=== PATIENT | female | born 1990 | race Caucasian/White ===

== ENCOUNTER → 2017-09-19 | Outpatient (CLI) | payer BC ==
[~2017-09-19] MED LIST: ACET-749 PO; PRENTAB26 PO
[2017-09-19 10:24] LABS: THYROID STIMULATING HORMONE 0.901 uIu/ml (0.300-4.500)
[2017-09-21 13:52] LABS: CRYPTOSPORIDIUM AG TC 37213 NOT DETECTED (NOT DETECTED); O&P GIARDIA AG NOT DETECTED (NOT DETECTED); O&P SOURCE OTHER-STOOL
== END | disposition home or self-care (01) ==
LOC: C.LAB1850 07:08
PROVIDERS: ATTEND Nurse Practitioner Family
DX: R19.5 Other fecal abnormalities (principal); R10.9 Unspecified abdominal pain

== ENCOUNTER → 2018-02-15 | Outpatient (CLI) | payer OTHER | END | disposition home or self-care (01) | LOC: C.PAPS 16:08 | PROVIDERS: ATTEND Obstetrics & Gynecology | DX: Z01.419 Encounter for gynecological examination (general) (routine) without abnormal findings (principal) ==

== ENCOUNTER 2019-05-09 01:49 | Inpatient (IN) ==
[2019-05-09] MEDS ORDERED: ePHEDrine sulfate 50 MG/ML AMP IV PRN (02:32)
[2019-05-09] MEDS ORDERED: ONDANSETRON INJ 2 MG/ML 2 ML VIAL IV PRN (02:32)
[2019-05-09] MEDS ORDERED: OXYTOCIN 30 UNITS/500 ML BAG IV PRN ×3 (02:32→08:19)
[2019-05-09] MEDS ORDERED: NALOXONE HCL 1 MG in SODIUM CHLORIDE 0.9% 1000ML 1,000 ML IV PRN (02:32)
[2019-05-09] MEDS ORDERED: NALOXONE HCL 0.4 MG/1 ML VIAL/CARP IV PRN (02:32)
[2019-05-09] MEDS ORDERED: fentaNYL 2MCG/ML ROPIV 1.25MG/ML 100 ML BAG EPI PRN (02:32)
[2019-05-09] MEDS ORDERED: NALBUPHINE HCL INJ 10 MG/ML AMP IV PRN (02:32)
[2019-05-09] MEDS ORDERED: DiphenhydrAMINE HCL 50 MG/ML VIAL IV PRN (02:32)
[2019-05-09] MEDS: LACTATED RINGER'S 1,000 ML IV PRN ×2 (02:45→05:39)
[2019-05-09 02:51] LABS: Hematocrit (blood only) 38.1 % (37-47); Hemoglobin 13.7 g/dL (12.0-16.0); Mean Platelet Volume 11.5 fL (7.4-10.4); Platelet Count 128 K/uL (130-400); RDW Coefficient of Variation 12.3 % (11.5-14.5); RDW Standard Deviation 39.6 fL (36.4-46.3); Red Blood Count 4.28 M/uL (4.2-5.4); White Blood Count 6.65 K/uL (4.8-10.8)
--- NOTE | 2019-05-09 02:54 | History & Physical Report ---
Date of Service May 09, 2019 Assessment & Plan (1) 40 weeks gestation of : (2) Active labor at term: admit, iv, labs. desires epidural. fetus categ 1. History of Present Illness Chief Complaint: regular ctx Primary Care Provider: NO PCP 28yo at 40+wks ega presents with above cc. No rom. Bloody show. Regular ctx, stronger and more painful. Cx per nurse 4cm. pnc c/b 1. 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 Beliefs That Will Affect Care: None marital status: Current Living Situation: Family Other Information That Helps Us Care for You: No Feels Safe at Home: Yes Safety Concerns: Feels Safe At This Time Smoking Status: Never smoker Do You Dip or Chew Tobacco: No Second Hand Exposure: No Tobacco Cessation Education Requested by Patient: No Hx Alcohol Use: No Hx Substance Use: No Physical Exam Constitutional: WD/WN, vitals as above Respiratory: normal respiratory effort, lungs clear to auscultation Cardiovascular: Rate/Rhythm: regular rate and regular rhythm Gastrointestinal (Abdomen): gravid nt, efw 7# Musculoskeletal: no edema Neurologic: grossly normal Genitourinary: Manual OB Exam: + cervical dilation 4 cm, + cervical effacement 80% and + amniotic fluid (intact) OB Exam Monitor Tracing: + external FHT monitor used (130 mod variability) and + external uterine monitor used (q2) Results & Data Vital Signs (Past 12 Hours) Vital Signs Temp Pulse Resp BP Pulse Ox 05/09/19 02:49 71 100 05/09/19 02:24 64 117/72 05/09/19 02:00 36.9 C 20
[2019-05-09] MEDS ORDERED: ePHEDrine sulfate 50 MG/ML AMP ONE (02:57)
[2019-05-09] MEDS ORDERED: fentaNYL citrate 100 MCG/2 ML VIAL ONE (02:57)
[2019-05-09] MEDS ORDERED: fentaNYL 2MCG/ML ROPIV 1.25MG/ML 100 ML BAG EPI ONE (02:57)
[2019-05-09] MEDS ORDERED: BUPIVACAINE 0.25% 30 ML VIAL ONE (02:57)
--- NOTE | 2019-05-09 03:18 | Anesthesiology Consultation ---
Date of Service May 09, 2019 Assessment & Plan Chart Review Chart Review: Patient NOT seen in Pre Admission Testing and Acceptable Risk for Labor Epidural Consults Requested none ASA ASA2 Proposed Anesthesia Anesthesia Type: Labor Epidural and CSE Risk / Benefits Reviewed With: PT / POA / Parent / Guardian, Accepts Plan and Informed Consent Obtained History Height/Weight Height: 5 ft 6 in Weight: 76.328 kg Allergies Allergy/AdvReac Type Severity Reaction Status Date / Time No Known Allergies Allergy Verified 04/10/19 18:18 Medications Home Medications Medication Instructions Recorded Confirmed Last Taken vit no.[id number] 1 tab PO DAILY 05/09/19 05/09/19 05/08/19 20:00 [ Vitamin] Active Medications Generic Name Dose Route Start Last Admin Trade Name Freq PRN Reason Stop Dose Admin Lactated Ringer's 1,000 mls @ 125 mls/hr 05/09/19 02:32 05/09/19 03:15 Lr IV 05/11/19 02:31 125 mls/hr .Q8H PRN Infusion L&D Protocol Protocol NPO Date Last Intake of Fluids: 05/09/19 Time Last Intake of Fluids: 01:00 Date Last Intake of Solids: 05/08/19 Time Last Intake of Solids: 19:00 Exercise / Class Metabolic Activity II 4-5 Yardwork/Stairs/Walk up hill Past Anesthesia History No Hx of Anesthesia Complications and No Family Hx of Anesthesia Complications History of PONV No Hx of PONV and Hx of Motion Sickness Social History Smoking Status: Never smoker Do You Dip or Chew Tobacco: No Hx Alcohol Use: No Hx Substance Use: No substance use type: does not use Review of Systems no chest pain or sob Physical Exam Vital Signs Last Vital Signs Temp 36.9 C 05/09/19 02:00 Pulse 68 05/09/19 03:16 Resp 20 05/09/19 02:00 BP 122/88 05/09/19 03:06 Pulse Ox 100 05/09/19 03:16 ENMT Mouth: no TMJ abnormality Thyromental Distance: > or= 3.5 Finger Breadths Mallampati Class: II Neck normal visual inspection Respiratory normal respiratory effort Auscultation: lungs clear to auscultation bilaterally Cardiovascular Rate/Rhythm: regular rate and regular rhythm Musculoskeletal Spine: normal cervical ROM Neurologic moves all extremities Psychiatric Orientation: alert and oriented x 3 Testing Laboratory Results 05/09/19 02:41
--- NOTE | 2019-05-09 06:43 | Obstetrical Progress Note ---
Date of Service May 09, 2019 Assessment & Plan (1) 40 weeks gestation of : (2) Active labor at term: will c/w pit, see how arom helps ctx pattern. Subjective feeling some ctx pain, using epidural button Physical Exam Constitutional: WD/WN, vitals as above Genitourinary: Manual OB Exam: + cervical dilation 5 cm, + cervical effacement 80%, + station -2 and + amniotic fluid (AROM) clear OB Exam Monitor Tracing: + external FHT monitor used (130 mod variability), + external uterine monitor used (q2) and + category I Results & Data Vital Signs (Past 12 Hours) Vital Signs Temp Pulse Resp BP Pulse Ox 05/09/19 06:36 63 111/69 97 05/09/19 06:31 55 L 97 05/09/19 06:30 36.6 C 20 05/09/19 06:26 56 L 98 05/09/19 06:21 51 L 98 05/09/19 06:19 63 102/62 05/09/19 06:16 56 L 97 05/09/19 06:11 56 L 98 05/09/19 06:06 54 L 105/63 98 05/09/19 06:01 55 L 98 05/09/19 06:00 18 05/09/19 05:56 58 L 100 05/09/19 05:51 55 L 100 05/09/19 05:50 55 L 115/69 05/09/19 05:46 61 100 05/09/19 05:41 58 L 100 05/09/19 05:36 56 L 100 05/09/19 05:34 56 L 108/65 05/09/19 05:31 60 100 05/09/19 05:30 18 05/09/19 05:26 75 100 05/09/19 05:21 58 L 100 05/09/19 05:19 56 L 106/58 L 05/09/19 05:16 54 L 100 05/09/19 05:11 65 100 05/09/19 05:06 58 L 99 05/09/19 05:04 57 L 101/55 L 05/09/19 05:01 59 L 98 05/09/19 04:56 54 L 98 05/09/19 04:51 57 L 98 05/09/19 04:49 59 L 104/58 L 05/09/19 04:46 55 L 98 05/09/19 04:41 52 L 97 05/09/19 04:36 56 L 97 05/09/19 04:34 61 108/64 05/09/19 04:31 52 L 97 05/09/19 04:26 53 L 97 05/09/19 04:21 54 L 98 05/09/19 04:19 52 L 107/59 L 05/09/19 04:16 54 L 97 05/09/19 04:11 54 L 97 05/09/19 04:06 54 L 97 05/09/19 04:04 51 L 108/59 L 05/09/19 04:01 54 L 98 05/09/19 04:00 36.6 C 20 05/09/19 03:56 55 L 99 05/09/19 03:51 60 100 05/09/19 03:46 58 L 106/58 L 99 05/09/19 03:43 56 L 117/56 L 05/09/19 03:41 62 100 05/09/19 03:40 63 117/58 L 05/09/19 03:37 62 114/57 L 05/09/19 03:36 66 100 05/09/19 03:34 69 108/57 L 05/09/19 03:31 62 108/58 L 98 05/09/19 03:30 20 05/09/19 03:29 65 110/69 05/09/19 03:26 75 100 05/09/19 03:21 71 100 05/09/19 03:16 68 100 05/09/19 03:11 61 100 05/09/19 03:06 57 L 122/88 100 05/09/19 03:00 64 99 05/09/19 02:55 66 99 05/09/19 02:49 71 100 05/09/19 02:24 64 117/72 05/09/19 02:00 36.9 C 20
[2019-05-09] MEDS ORDERED: BENZOCAINE 20% AER SPR 82.5 GM CAN EXT PRN (08:19)
[2019-05-09] MEDS ORDERED: ACETAMINOPHEN 325 MG TAB PO PRN (08:19)
[2019-05-09] MEDS ORDERED: OXYCODONE/ACETAMINOPHEN 5mg/325mg TAB PO PRN (08:19)
[2019-05-09] MEDS ORDERED: HYDROCORTISONE ACETATE 25 MG SUPP PR PRN (08:19)
[2019-05-09] MEDS ORDERED: SUPERCREAM 0.870% 15 GM JAR EXT PRN (08:19)
--- NOTE | 2019-05-09 08:36 | Delivery Summary ---
DATE OF OPERATION: 05/09/2019 DELIVERY NOTE The patient dilated to complete and pushed to deliver a viable female , Apgars 9 and 9 via over small second-degree perineal laceration. Mouth and nose bulb suctioned at the perineum. Loose nuchal cord x1 reduced. The shoulders and body delivered with ease. The was vigorous and crying at . Cord clamped at 30 seconds of life and to maternal abdomen where the cord was then doubly clamped and cut. Placenta delivered spontaneously and intact, 3-vessel cord. Hemostasis achieved with dilute Pitocin as well as uterine massage and drainage of the bladder approximately 150 mL under sterile conditions. Cervix and sulci intact. Laceration repaired in the usual fashion with 3-0 Vicryl. EBL 300 mL. Mother and baby stable in recovery. I attest to the content of the Intraoperative Record and any orders documented therein. Any exception s are noted below.
[2019-05-09] MEDS ORDERED: LACTATED RINGER'S 1,000 ML IV SCH (11:30)
[2019-05-09] MEDS ORDERED: DIPHTHERIA/TETANUS/PERTUSSIS 0.5 ML SYR/VIAL IM ONE (11:30)
[2019-05-09] MEDS: IBUPROFEN 600 MG TAB PO PRN ×3 (13:55→22:18)
--- NOTE | 2019-05-09 16:43 | Anesthesia Procedure Note ---
Date of Service May 09, 2019 Anesthesia Post Epidural Note Vital Signs Vital Signs: Temp Pulse Resp BP Pulse Ox 37.1 C 56 L 16 104/65 99 05/09/19 15:10 05/09/19 15:10 05/09/19 15:10 05/09/19 15:10 05/09/19 15:10 Notes Mental Status: alert / awake / arousable Nausea / Vomiting: adequately controlled Pain: adequately controlled Airway Patency, RR, SpO2: stable & adequate BP & HR: stable & adequate Hydration State: stable & adequate Neuraxial Anesthesia: was administered and sensory block is resolving Anesthetic Complications: no major complications apparent and Pt Satisfied with anesthetic care Epidural: Removed without complications and With tip intact
[2019-05-10] MEDS: IBUPROFEN 600 MG TAB PO PRN ×3 (02:08→11:11)
--- NOTE | 2019-05-10 05:29 | Obstetrical Progress Note ---
Date of Service <Abiodun Taylor MD - Last Filed: 05/10/19 07:18> May 10, 2019 Assessment & Plan <Abiodun Taylor MD - Last Filed: 05/10/19 07:18> (1) Vaginal delivery: [28 y/o s/p vaginal delivery @ 40+2] -PPD# 1 - GBS negative, Blood Type O+ - Feels well today. Eating well, voiding well, ambulating well. - Pain well controlled. - Routine care - After discharge will have [address] Ford. Day #:: 1 Subjective <Abiodun Taylor MD - Last Filed: 05/10/19 07:18> Ambulation: ambulating normally Voiding: no voiding problems Passing Gas:: Yes Diet Tolerance:: regular diet Lochia:: Moderate (less than a heavy period) Feeding Type:: breast feeding Current Pain Level(1-10): 0 (5/10 w/o Motrin.) Physical Exam <Abiodun Taylor MD - Last Filed: 05/10/19 07:18> OB PE General: Alert, oriented. No acute distress. Cardiac: Regular rate and rhythm, no murmurs/rubs/gallops. Respiratory: Clear to auscultation anterior and posteriorly, no wheezes/rales/rhonchi. No increased work of breathing. Symmetrical chest rise. No respiratory distress. Abdomen: Soft, nontender, nondistended. Bowel sounds present. Uterus: Uterine fundus firm, palpable 1 cm below umbilicus. Lower Extremities: No lower extremity edema or swelling. No deep calf pain. Mandy's negative bilaterally. OB ROS Denies fever, chills, sweats Denies shortness of breath, difficulty breathing, chest pain, palpitations, chest pressure. Denies breast pain. Denies dysuria. Denies headache. Results & Data <Abiodun Taylor MD - Last Filed: 05/10/19 07:18> Vital Signs (Past 12 Hours) Vital Signs Temp Pulse Resp BP Pulse Ox 05/10/19 04:15 37.1 C 69 17 110/68 98 05/09/19 22:30 36.4 C L 61 16 117/73 99 05/09/19 19:50 37.2 C 66 16 124/76 99 <Leta B. Kieran, MD - Last Filed: 05/10/19 07:08> Co-Signing Physician Notes I have reviewed the resident's note and examined the patient myself, and agree with the note above.
== END 2019-05-10 15:15 | disposition home or self-care (01) | DRG 807 ==
LOC: OPB 01:49 → 4S1 01:51 → 4S2 11:10

== ENCOUNTER 2019-05-24 02:43 | Observation (INO) ==
[2019-05-24] MEDS ORDERED: SODIUM CHLORIDE 0.9% 1000ML 1,000 ML IV ONE (02:56)
--- NOTE | 2019-05-24 02:58 | Emergency Department Note ---
History of Present Illness General Chief complaint: Vaginal Bleeding Stated complaint: VAGINAL BLEEDING, 2WKS POST Time Seen by Provider: 05/24/19 02:51 Source: patient, RN notes reviewed and old records reviewed Mode of arrival: ambulatory Limitations: no limitations History of Present Illness Provider complaint: Vaginal bleeding Onset (ago): hour(s) 1 Location: genitals Severity: severe Maximum Pain Intensity: 1 Quality: + dull Relieved By: + none Exacerbated By: + none Associated symptoms: + denies other symptoms Treatments prior to arrival: other (Pads) This is a 29-year-old female who presents emergency department 2 weeks complaining of vaginal bleeding. The patient reports she began having vaginal bleeding approximately 1 hour ago. The patient describes the bleeding as heavy. She has [address] and has already soaked through her underwear as well as her pants. She denies any other pain, chest pain abdominal pain pelvic pain. Patient reports no other history of bleeding issues. She reports she has been breast-feeding the baby and the baby has been healthy. She also reports a normal labor. She has not had any problems since delivery. Home Medications Home Medications Medication Instructions Recorded Confirmed Type Vitamin 1 tab PO DAILY 05/09/19 05/24/19 History Allergies Allergy/AdvReac Type Severity Reaction Status Date / Time No Known Allergies Allergy Verified 05/24/19 03:18 Past Med/Surg History Medical History Simpson teeth extracted Social History Preferred Language: Divehi Communication Ability: Effective Manager Hris Required: No Beliefs That Will Affect Care: None marital status: Current Living Situation: Spouse and Family Feels Safe at Home: Yes Safety Concerns: Feels Safe At This Time Smoking Status: Never smoker Do You Dip or Chew Tobacco: No ; Second Hand Exposure: No ; Hx Alcohol Use: No Hx Substance Use: No Review of Systems A total of 10 systems reviewed and were otherwise negative Physical Exam Vital Signs Vital Signs - 24 hr 05/24/19 02:47 05/24/19 03:14 05/24/19 03:17 Temperature 36.7 C Temperature Source Oral Sepsis Recent Fever Within 48 Hours No Sepsis Action Taken by Nursing No Action Required Pulse Rate 111 H Pulse Rate [Right Finger] 92 H 91 H Pulse Rhythm [Right Finger] Regular Regular Pulse Strength [Right Finger] Normal Normal Respiratory Rate 18 18 16 Respiratory Effort / Characteristics Non-Labored Non-Labored Non-Labored Respiratory Depth Normal Normal Normal Respiratory Pattern Regular Regular Blood Pressure 117/78 Blood Pressure [Right Arm] 126/84 119/76 Blood Pressure Mean 91 Blood Pressure Mean [Right Arm] 98 90 Blood Pressure Position Sitting Blood Pressure Position [Right Arm] Lying Lying Pulse Oximetry 100 100 100 Oxygen Delivery Method Room Air Room Air Room Air 05/24/19 03:31 05/24/19 03:41 Temperature Temperature Source Sepsis Recent Fever Within 48 Hours Sepsis Action Taken by Nursing Pulse Rate 90 Pulse Rate [Right Finger] 87 Pulse Rhythm [Right Finger] Regular Pulse Strength [Right Finger] Normal Respiratory Rate 14 16 Respiratory Effort / Characteristics Non-Labored Respiratory Depth Normal Respiratory Pattern Regular Blood Pressure 116/70 Blood Pressure [Right Arm] 116/82 Blood Pressure Mean Blood Pressure Mean [Right Arm] 93 Blood Pressure Position Blood Pressure Position [Right Arm] Lying Pulse Oximetry 100 99 Oxygen Delivery Method Room Air Room Air GENERAL: Patient is a pale appearing female in moderate distress HEAD: Normocephalic atraumatic EYES: Ocular movements intact pupils equal and react to light OROPHARYNX mucous membranes are moist no exudates present no erythema or edema present NECK: Supple no nuchal rigidity CHEST: Good equal expansion LUNGS: Clear and equal to auscultation CARDIAC: Normal S1 and S2 ABDOMEN: Soft nontender no guarding : Large amount of clots and bleeding in vag vault BACK: No CVA tenderness EXTREMITIES: No pain upon palpation normal muscle strength in all groups no clubbing cyanosis or edema NEURO: Patient is following commands is answering questions appropriately. Alert and oriented x3 Cranial Nerves 2-12 grossly intact Course Administered Medications Lactated Ringer's (Lr) 1,000 mls @ 125 mls/hr IV .Q8H [facility] Stop: 06/23/19 04:29 Last Admin: 05/24/19 06:15 Dose: 125 mls/hr Documented by: [id number] Ondansetron HCl (Zofran) 4 mg IV ONCE PRN PRN Reason: PACU Use Only-Nausea/Vomiting Stop: 05/24/19 09:05 Last Admin: 05/24/19 06:44 Dose: 4 mg Documented by: [id number] Discontinued Medications Sodium Chloride (Nss 1000ml) 1,000 mls @ 999 mls/hr IV .Q1H1M ONE Stop: 05/24/19 03:56 Last Infusion: 05/24/19 06:03 Dose: 0 mls/hr Documented by: [id number] Admin: 05/24/19 03:05 Dose: 999 mls/hr Documented by: [id number] Piperacillin Sod/Tazobactam Sod (Zosyn) 3.375 gm in 115 mls @ 230 mls/hr IV NOW STA Stop: 05/24/19 04:16 Last Infusion: 05/24/19 06:03 Dose: 0 mls/hr Documented by: [id number] Admin: 05/24/19 03:58 Dose: 230 mls/hr Documented by: [id number] Misoprostol (Cytotec) Confirm Administered Dose 800 mcg .ROUTE .STK-MED ONE Stop: 05/24/19 04:08 Last Admin: 05/24/19 04:09 Dose: 800 mcg Documented by: [id number] Medical Decision Making Differential Diagnosis My differential includes but is not limited to retained part products of conception, vaginal laceration, hemorrhage, DIC, dysfunctional uterine bleeding Medical Records Attestation: I reviewed the patient's medical records. Home Medications Current Medication List: was personally reviewed by me Laboratory Data Attestation: I reviewed the patient's lab results. Result diagrams: 05/24/19 05:59 05/24/19 02:58 Lab Results 05/24/19 05/24/19 05/24/19 Range/Units 02:58 02:58 02:58 WBC 6.99 (4.8-10.8) K/uL RBC 4.71 (4.2-5.4) M/uL Hgb 15.4 (12.0-16.0) g/dL POC Hgb (12.0-16.0) g/dl Hct 42.9 (37-47) % POC Hct (37-47) % MCV 91.1 (80-100) fL MCH 32.7 (25-34) pg MCHC 35.9 (32-36) g/dL RDW Std Deviation 39.9 (36.4-46.3) fL RDW Coeff of Shaniqua 11.8 (11.5-14.5) % Plt Count 218 (130-400) K/uL MPV 10.4 (7.4-10.4) fL Immature Gran % (Auto) 0.1 % Neut % (Auto) 47.1 % Lymph % (Auto) 43.8 % [place] % (Auto) 7.0 % Eos % (Auto) 1.7 % Baso % (Auto) 0.3 % Immature Gran # (Auto) 0.01 (0.00-0.02) K/uL Neut # (Auto) 3.29 (1.4-6.5) K/uL Lymph # (Auto) 3.06 (1.2-3.4) K/uL [place] # (Auto) 0.49 (0.11-0.59) K/uL Eos # (Auto) 0.12 (0-0.5) K/uL Baso # (Auto) 0.02 (0-0.2) K/uL PT 10.2 (9.0-12.0) Seconds INR 1.0 (0.9-1.1) APTT 23.9 (21.0-31.0) Seconds PTT Ratio 0.9 Fibrinogen 293 (184-400) mg/dl POC Sodium (135-144) mEq/L Sodium 141 (136-145) mmol/L POC Potassium (3.3-5.0) mEq/L Potassium 3.6 (3.5-5.1) mmol/L POC Chloride (101-112) mEq/L Chloride 106 (98-107) mmol/L Carbon Dioxide 30 (21-32) mmol/L POC Total CO2 (24-31) mEq/l Anion Gap 5.0 (3-11) POC Anion Gap (16-25) mmol/L POC BUN (7-18) mg/dl BUN 16 (7-18) mg/dl Creatinine 0.86 (0.6-1.2) mg/dl POC Creatinine (0.6-1.3) mg/dl Est Cr Clr Drug Dosing Not Reportable Est GFR ( Amer) 104.3 Est GFR (Non-Af Amer) 90.0 BUN/Creatinine Ratio 18.1 (10-20) Glucose 120 H (70-99) mg/dl POC Glucose (other) (70-99) mg/dl Calcium 8.8 (8.5-10.1) mg/dl POC Ioniz Calcium Aaron (1.12-1.32) mmol/l Total Bilirubin 0.3 (0.2-1) mg/dl AST 17 (15-37) U/L ALT 20 (12-78) U/L Alkaline Phosphatase 129 H (45-117) U/L Total Protein 7.3 (6.4-8.2) gm/dl Albumin 3.6 (3.4-5.0) gm/dl Globulin 3.7 (2.5-4.0) gm/dl Albumin/Globulin Ratio 1.0 (0.9-2) HCG, Quant mIU/ml Blood Type Antibody Screen 05/24/19 05/24/19 05/24/19 Range/Units 02:58 02:58 03:05 WBC (4.8-10.8) K/uL RBC (4.2-5.4) M/uL Hgb (12.0-16.0) g/dL POC Hgb 13.3 (12.0-16.0) g/dl Hct (37-47) % POC Hct 39 (37-47) % MCV (80-100) fL MCH (25-34) pg MCHC (32-36) g/dL RDW Std Deviation (36.4-46.3) fL RDW Coeff of Shaniqua (11.5-14.5) % Plt Count (130-400) K/uL MPV (7.4-10.4) fL Immature Gran % (Auto) % Neut % (Auto) % Lymph % (Auto) % [place] % (Auto) % Eos % (Auto) % Baso % (Auto) % Immature Gran # (Auto) (0.00-0.02) K/uL Neut # (Auto) (1.4-6.5) K/uL Lymph # (Auto) (1.2-3.4) K/uL [place] # (Auto) (0.11-0.59) K/uL Eos # (Auto) (0-0.5) K/uL Baso # (Auto) (0-0.2) K/uL PT (9.0-12.0) Seconds INR (0.9-1.1) APTT (21.0-31.0) Seconds PTT Ratio Fibrinogen (184-400) mg/dl POC Sodium 139 (135-144) mEq/L Sodium (136-145) mmol/L POC Potassium 3.5 (3.3-5.0) mEq/L Potassium (3.5-5.1) mmol/L POC Chloride 102 (101-112) mEq/L Chloride (98-107) mmol/L Carbon Dioxide (21-32) mmol/L POC Total CO2 25 (24-31) mEq/l Anion Gap (3-11) POC Anion Gap 17.0 (16-25) mmol/L POC BUN 15 (7-18) mg/dl BUN (7-18) mg/dl Creatinine (0.6-1.2) mg/dl POC Creatinine 0.8 (0.6-1.3) mg/dl Est Cr Clr Drug Dosing Est GFR ( Amer) Est GFR (Non-Af Amer) BUN/Creatinine Ratio (10-20) Glucose (70-99) mg/dl POC Glucose (other) 125 H (70-99) mg/dl Calcium (8.5-10.1) mg/dl POC Ioniz Calcium Aaron 1.25 (1.12-1.32) mmol/l Total Bilirubin (0.2-1) mg/dl AST (15-37) U/L ALT (12-78) U/L Alkaline Phosphatase (45-117) U/L Total Protein (6.4-8.2) gm/dl Albumin (3.4-5.0) gm/dl Globulin (2.5-4.0) gm/dl Albumin/Globulin Ratio (0.9-2) HCG, Quant 13 mIU/ml Blood Type O Positive Antibody Screen NEGATIVE Blood Pressure Blood Pressure Findings: Low blood pressure MDM Narrative This is a 29-year-old female who presents the emergency department complaining of severe vaginal bleeding. On my physical examination there is heavy bleeding present along with a large amount of clotting. Because of this a consult was immediately placed with gynecology. Dr. Sousa was kind enough to come down and see the patient. Patient's hemoglobin in the emergency department is found to be 13. An IV was established type and screen obtained. Patient is given a normal saline bolus x2. She was taken to the operating room. Impression & Plan Delayed and secondary hemorrhage, , Vaginal bleeding Critical Care Time I have personally spent greater than 30 minutes of critical care time in the direct management of this patient. This includes bedside care, interpretation of diagnostic studies, and testing, discussion with consultants, patient, and family members, and other required patient management activities. This 30 minutes is in excess of all separately billable procedures. Discharge Plan Visit Data *Final* Discharge Date/Time: 05/24/19 03:41 Chief Complaint: Vaginal Bleeding Stated Complaint: VAGINAL BLEEDING, 2WKS POST ED Provider: Hayes Whitten Discharge Problem: Delayed and secondary hemorrhage, , Vaginal bleeding Patient Disposition: Admitted As Inpatient Discharge Instructions Interventions: ED Discharge Assessment Last Done: 05/24/19 03:41
[2019-05-24 03:08] LABS: Basophils # (auto) 0.02 K/uL (0-0.2); Basophils % (auto) 0.3 %; Eosinophils # (auto) 0.12 K/uL (0-0.5); Eosinophils % (auto) 1.7 %; Hematocrit (blood only) 42.9 % (37-47); Hemoglobin 15.4 g/dL (12.0-16.0); Immature Granulocytes # (auto) 0.01 K/uL (0.00-0.02); Immature Granulocytes % (auto) 0.1 %; Lymphocytes # (auto) 3.06 K/uL (1.2-3.4); Lymphocytes % (auto) 43.8 %; Mean Corpuscular Hgb Conc 35.9 g/dL (32-36); Mean Corpuscular Volume 91.1 fL (80-100); Mean Platelet Volume 10.4 fL (7.4-10.4); Monocytes # (auto) 0.49 K/uL (0.11-0.59); Neutrophils # (auto) 3.29 K/uL (1.4-6.5); Neutrophils % (auto) 47.1 %; Platelet Count 218 K/uL (130-400); RDW Coefficient of Variation 11.8 % (11.5-14.5); RDW Standard Deviation 39.9 fL (36.4-46.3); Red Blood Count 4.71 M/uL (4.2-5.4); White Blood Count 6.99 K/uL (4.8-10.8)
[2019-05-24 03:17] LABS: iSTAT Creatinine 0.8 mg/dl (0.6-1.3); iSTAT Hemoglobin 13.3 g/dl (12.0-16.0); iSTAT Ionized Calcium 1.25 mmol/l (1.12-1.32); iSTAT Potassium 3.5 mEq/L (3.3-5.0)
[2019-05-24] MEDS ORDERED: METHYLERGONOVINE MALEATE 0.2 MG/ML AMP ONE (03:21)
[2019-05-24 03:25] LABS: Alanine Aminotransferase 20 U/L (12-78); Albumin Level 3.6 gm/dl (3.4-5.0); Aspartate Aminotransferase 17 U/L (15-37); BUN Creatinine Ratio 18.1 (10-20); Blood Urea Nitrogen 16 mg/dl (7-18); Calcium 8.8 mg/dl (8.5-10.1); Carbon Dioxide 30 mmol/L (21-32); Chloride 106 mmol/L (98-107); Est GFR (African American) 104.3; Glucose 120 mg/dl (70-99); Potassium 3.6 mmol/L (3.5-5.1); Sodium 141 mmol/L (136-145)
[2019-05-24 03:27] LABS: Alkaline Phosphatase 129 U/L (45-117); Bilirubin,Total 0.3 mg/dl (0.2-1); Fibrinogen 293 mg/dl (184-400); Globulin 3.7 gm/dl (2.5-4.0); Partial Thromboplastin Ratio 0.9; Partial Thromboplastin Time 23.9 Seconds (21.0-31.0); Prothrombin Time 10.2 Seconds (9.0-12.0); Total Protein 7.3 gm/dl (6.4-8.2)
--- NOTE | 2019-05-24 03:28 | History & Physical Report ---
Date of Service May 24, 2019 Assessment & Plan (1) Delayed and secondary hemorrhage, : Acute, active bleeding. i-stat labs show hgb 13. Hemorrhaging. Needs to go to the or acutely. disussed would start with EUA with US guidance, D&E. Discussed possiblity of Bakri balloon. Also discussed that if we could not get bleeding to stop with conservative measures, may need to proceed with hyster. Discussed r/b/se of surgery--anesthesia, bleeding, transfusion, infection, poor wound healing, damage to surrounding structures/perforation with need for further surgery. Discussed would maintain ovaries. discussed possible supracervical hyster as fastest way to stop bleeding. Patient understands the urgency of the situation and the uncertainty of it. I promised I would go out and speak with prior to proceeding with hyster. she consents. History of Present Illness Primary Care Provider: NO PCP Patient is a 2 weeks from her third uncomplicated vaginal delivery. No issues with or delivery. Awoke in the middle of the night noting a gush. She is passing large clots, filling pad in less than 15 min. Allergies Allergy/AdvReac Type Severity Reaction Status Date / Time No Known Allergies Allergy Verified 05/24/19 03:18 Home Medications Home Medications Medication Instructions Recorded Confirmed Type Vitamin 1 tab PO DAILY 05/09/19 05/24/19 History Patient History Medical History Pony teeth extracted Social History Preferred Language: Faroese Communication Ability: Effective Transitions Rn Care Coordinator Required: No Beliefs That Will Affect Care: None marital status: Current Living Situation: Family Feels Safe at Home: Yes Smoking Status: Never smoker Second Hand Exposure: No ; Hx Alcohol Use: No Hx Substance Use: No OB History x 3 GRIDDLE COOK History noncontrib Review of Systems All systems reviewed & are unremarkable except as noted in HPI & below Physical Exam Constitutional: WD/WN, vitals as above shaky Respiratory: normal respiratory effort, lungs clear to auscultation Cardiovascular: RRR, no murmur, no edema Gastrointestinal (Abdomen): abd soft, nt, nd, cannot palpate uterus Psychiatric: A+Ox3, euthymic affect Genitourinary: perineum covered with active blood, bright red attempted speculum exam and unable to see anything as large clots and active bleeding filling the vagina. Unable to even see cervix bme--tender to palpation nd difficult to evaluate sized or boggy ness Results & Data Vital Signs (Past 12 Hours) Vital Signs Temp Pulse Pulse Resp BP BP Pulse Ox 05/24/19 03:17 91 H 16 119/76 100 05/24/19 03:14 92 H 18 126/84 100 05/24/19 02:47 36.7 C 111 H 18 117/78 100
[2019-05-24] MEDS ORDERED: MIDAZOLAM HCL 1 MG/ML 2ML VIAL ONE (03:31)
[2019-05-24] MEDS ORDERED: ONDANSETRON INJ 2 MG/ML 2 ML VIAL ONE (03:31)
[2019-05-24] MEDS ORDERED: DEXAMETHASONE SOD INJ 4 MG/ML VIAL ONE (03:31)
[2019-05-24] MEDS ORDERED: SUCCINYLCHOLINE CHLORIDE 20 MG/ML 10 ML VIAL ONE (03:31)
[2019-05-24] MEDS ORDERED: fentaNYL citrate 100 MCG/2 ML VIAL ONE (03:31)
[2019-05-24] MEDS ORDERED: PROPOFOL IV EMULSION 10 MG/ML 20 ML VIAL IV ONE (03:31)
[2019-05-24] MEDS ORDERED: PIPERACILL/TAZOBAC CONSULT ACTIVE PRN (03:33)
--- NOTE | 2019-05-24 03:40 | Anesthesiology Consultation ---
Date of Service May 24, 2019 Assessment & Plan (1) Encounter for pre-operative examination: Chart Review Chart Review: Acceptable Risk for Surgery and Patient NOT seen in Pre Admission Testing Consults Requested none History Surgery Operation Date: 05/24/19 03:30 Proposed Procedures p Dilation and Evacuation - Magnolia Sousa MD, FACOG Height/Weight Height: 5 ft 7 in Weight: 77 kg Allergies Allergy/AdvReac Type Severity Reaction Status Date / Time No Known Allergies Allergy Verified 05/24/19 03:18 Medications Home Medications Medication Instructions Recorded Confirmed Last Taken Vitamin 1 tab PO DAILY 05/09/19 05/24/19 05/23/19 NPO Date Last Intake of Fluids: 05/23/19 Time Last Intake of Fluids: 20:30 Last Intake of Fluids Comment: Water Date Last Intake of Solids: 05/23/19 Time Last Intake of Solids: 20:30 Last Intake of Solids Comment: Birthday cake Past Medical History Medical History [place] teeth extracted Exercise / Class Metabolic Activity 1 > 8 Run/Swim/Ski/Tennis Past Anesthesia History No Hx of Anesthesia Complications and No Family Hx of Anesthesia Complications History of PONV No Hx of PONV and No Hx of Motion Sickness Social History Smoking Status: Never smoker Do You Dip or Chew Tobacco: No Hx Alcohol Use: No Hx Substance Use: No substance use type: does not use Physical Exam Vital Signs Last Vital Signs Temp 36.7 C 05/24/19 02:47 Pulse 90 05/24/19 03:41 Resp 16 05/24/19 03:41 BP 116/70 05/24/19 03:41 Pulse Ox 99 05/24/19 03:41 Testing Laboratory Results 05/24/19 02:58 05/24/19 02:58 PT 10.2 Seconds (9.0-12.0) 05/24/19 02:58 INR 1.0 (0.9-1.1) 05/24/19 02:58 APTT 23.9 Seconds (21.0-31.0) 05/24/19 02:58 HCG, Quant 13 mIU/ml 05/24/19 02:58 05/24/19 03:05 POC Glucose (other) 125 H 05/24/19 02:58 HCG, Quant 13
[2019-05-24] MEDS ORDERED: PIPERACILLIN/TAZOBACTAM 3.375 GM/115 ML BAG IV STA (03:47)
[2019-05-24] MEDS ORDERED: [UNRECOGNIZED DRUG - OTHER] SCH (04:00)
[2019-05-24] MEDS ORDERED: ONDANSETRON INJ 2 MG/ML 2 ML VIAL IV PRN (04:05)
[2019-05-24] MEDS ORDERED: ePHEDrine sulfate 50 MG/ML AMP IV PRN (04:05)
[2019-05-24] MEDS ORDERED: fentaNYL citrate 100 MCG/2 ML VIAL IV PRN (04:05)
[2019-05-24] MEDS ORDERED: ATROPINE SULFATE 0.1 MG/ML 10ML SYR IV PRN (04:05)
[2019-05-24] MEDS ORDERED: HYDROmorphone INJ 1 MG/ML SYRINGE IV PRN (04:05)
[2019-05-24] MEDS ORDERED: OXYTOCIN 10 UNITS/ML VIAL ONE (04:07)
[2019-05-24] MEDS ORDERED: miSOPROStol 200 MCG TAB ONE (04:07)
[2019-05-24] MEDS ORDERED: ACETAMINOPHEN 325 MG TAB PO PRN (04:26)
[2019-05-24] MEDS ORDERED: IBUPROFEN 600 MG TAB PO PRN (04:26)
[2019-05-24] MEDS ORDERED: MoRPHine SULFATE 2 MG/ML CARP IV PRN (04:26)
--- NOTE | 2019-05-24 04:34 | Post Operative Brief Note ---
PG Immediate Post Op with CF Date of Surgery May 24, 2019 Pre & Post Diagnosis Operation Date: 05/24/19 03:30 Pre-Op Diagnosis: DELAYED POST HEMMORHAGE Post-Op Diagnosis: RETAINED PRODUCTS OF CONCEPTION Procedure Operation Date: 05/24/19 03:30 Actual Procedures p Ultrasound guided dilation, evacuation and cutterage - Magnolia Sousa MD, FACOG Surgeon Magnolia Sousa MD, FACOG Pan Tank Worker none Estimated Blood Loss 150 Findings Consistent with Post-Op Diagnosis Specimens Specimen Description: A. retained products of conception
--- NOTE | 2019-05-24 04:57 | Anesthesiology Progress Note ---
Date of Service May 24, 2019 Anesthesia Post Procedure Vital Signs Vital Signs: Temp Pulse Pulse Resp BP BP Pulse Ox 05/24/19 04:47 36.8 C 86 16 99/66 L 100 05/24/19 04:37 36.8 C 88 16 104/68 100 05/24/19 04:27 36.8 C 91 H 16 100/65 100 05/24/19 03:41 90 16 116/70 99 05/24/19 03:31 87 14 116/82 100 05/24/19 03:17 91 H 16 119/76 100 05/24/19 03:14 92 H 18 126/84 100 05/24/19 02:47 36.7 C 111 H 18 117/78 100 Transfer of Care Handoff Completed per policy Notes Mental Status: alert / awake / arousable and participated in evaluation Patient Amnestic to Procedure: Yes Nausea / Vomiting: adequately controlled Pain: adequately controlled Airway Patency, RR, SpO2: stable & adequate BP & HR: stable & adequate Hydration State: stable & adequate Anesthetic Complications: no major complications apparent and Pt Satisfied with anesthetic care Notes: spoke with patients and stated if possible to pump and dump x 24 hours. they have breastmilk stores for that period of time
[2019-05-24] MEDS: LACTATED RINGER'S 1,000 ML IV SCH ×2 (06:15→14:09)
[2019-05-24 06:51] LABS: Basophils # (auto) 0.03 K/uL (0-0.2); Basophils % (auto) 0.4 %; Eosinophils # (auto) 0.02 K/uL (0-0.5); Eosinophils % (auto) 0.3 %; Hematocrit (blood only) 29.3 % (37-47); Hemoglobin 10.3 g/dL (12.0-16.0); Immature Granulocytes # (auto) 0.02 K/uL (0.00-0.02); Immature Granulocytes % (auto) 0.3 %; Lymphocytes # (auto) 0.95 K/uL (1.2-3.4); Mean Corpuscular Hgb Conc 35.2 g/dL (32-36); Mean Corpuscular Volume 90.7 fL (80-100); Mean Platelet Volume 10.3 fL (7.4-10.4); Monocytes # (auto) 0.19 K/uL (0.11-0.59); Monocytes % (auto) 2.4 %; Neutrophils # (auto) 6.68 K/uL (1.4-6.5); Neutrophils % (auto) 84.6 %; Platelet Count 181 K/uL (130-400); RDW Coefficient of Variation 11.7 % (11.5-14.5); RDW Standard Deviation 38.9 fL (36.4-46.3); Red Blood Count 3.23 M/uL (4.2-5.4); White Blood Count 7.89 K/uL (4.8-10.8)
--- NOTE | 2019-05-24 07:16 | Ultrasound Report ---
US guide intraoperative CLINICAL HISTORY: evaluate pp uterus COMPARISON STUDY: No previous studies for comparison. TECHNIQUE: Ultrasound guidance was provided for dilatation and curettage for retained products of con ception. FINDINGS: Ultrasound guidance was provided for Dr. Sousa. The images demonstrate thickened endometri um suggestive of retained products of conception. IMPRESSION: Ultrasound guidance provided for dilatation and curettage. Electronically signed by: Flex Hickman M.D. 05/24/2019 7:14 AM
[2019-05-24] MEDS ORDERED: SODIUM CHLORIDE 0.9% 1000ML 500 ML IV ONE (07:24)
--- NOTE | 2019-05-24 07:32 | Gynecologic Progress Note ---
Date of Service May 24, 2019 Assessment & Plan (1) Delayed and secondary hemorrhage, : h/h was 10.3/29.3. I suspect will drop further. Conservatively, she lost a liter. will repeat cbc in 6 hours. Continue to monitor closely. May yet need a blood transfusion as may be symptomatic from blood loss. Explained situation to patient and she expresses understanding (2) Retained products of conception: Subjective Pateint sat up for the first time and got very dizzy and nauseated. [place] called notes bp was 88/61. When I got down to see her, she was feeling better. Had gotten some zofran and nausea improved. She was pumping. Physical Exam Constitutional: WD/WN, vitals as above Gastrointestinal (Abdomen): Inspection/Auscultation: abdomen not distended Percussion/Palpation: abdomen soft; abdomen nontender Psychiatric: A+Ox3, euthymic affect Genitourinary: small/mod bleeding. When pressing on belly do not get a trickle. wearing a pad that has small/mod amount of blood ion it. When she got to floor at about 6 am she had saturated pad which was changed. I believe this is her second pad. Results & Data Vital Signs (Past 12 Hours) Vital Signs Temp Pulse Pulse Resp BP BP BP 05/24/19 06:30 36.7 C 89 16 88/61 L 05/24/19 06:00 37.0 C 92 H 16 96/66 L 05/24/19 05:30 36.8 C 83 16 91/61 L 91/61 L 05/24/19 05:15 36.9 C 87 16 107/65 05/24/19 05:02 36.9 C 80 16 94/65 L 05/24/19 04:47 36.8 C 86 16 99/66 L 05/24/19 04:37 36.8 C 88 16 104/68 05/24/19 04:27 36.8 C 91 H 16 100/65 05/24/19 03:41 90 16 116/70 05/24/19 03:31 87 14 116/82 05/24/19 03:17 91 H 16 119/76 05/24/19 03:14 92 H 18 126/84 05/24/19 02:47 36.7 C 111 H 18 117/78 Pulse Ox 05/24/19 06:30 98 08/09/19 06:00 97 05/24/19 05:30 100 05/24/19 05:15 100 05/24/19 05:02 100 05/24/19 04:47 100 05/24/19 04:37 100 05/24/19 04:27 100 05/24/19 03:41 99 05/24/19 03:31 100 05/24/19 03:17 100 05/24/19 03:14 100 05/24/19 02:47 100 PG Care Time/CCT Total # of Minutes Spent Total Time Spent with Patient: Total time spent is greater than 50% in coordination of care (as documented) at patient's floor/unit and/or counseling patient:
--- NOTE | 2019-05-24 09:51 | Gynecologic Progress Note ---
Date of Service May 24, 2019 Assessment & Plan (1) Retained products of conception: (2) Delayed and secondary hemorrhage, : (3) Postoperative state: (4) Status post dilation and curettage: Dr. Boyd had been seeing her since i was in delivery and met him in hallway. will see how her hgb looks which was ordered stat and pt understands may require blood transfusion based on value and her sx. she does not have ongoing bleeding at this time. she verbalized understanding. I will check back with her after h/h back. Subjective after completing delivery on 4th floor came down to see pt as I was told a code blue and then code purple called on her. when i arrived she was alone in her room with baby in stroller and was covered under blanket. she notes that she fainted after coming out of bathroom to void and that is why all that happened but that she felt fine. Review of Systems Review of Systems: denies heavy bleeding. no pain. was having nausea this am but that got better with medications Physical Exam Constitutional: WD/WN, vitals as above lips pale but otherwise nad Psychiatric: A+Ox3, euthymic affect Results & Data Vital Signs (Past 12 Hours) Vital Signs Temp Pulse Pulse Pulse Resp BP BP 05/24/19 09:13 68 16 05/24/19 08:30 98.2 F 86 18 88/60 L 05/24/19 07:35 99.0 F 86 18 91/59 L 05/24/19 06:30 98.1 F 89 16 88/61 L 05/24/19 06:00 98.6 F 92 H 16 96/66 L 05/24/19 05:30 98.2 F 83 16 91/61 L 05/24/19 05:15 98.4 F 87 16 05/24/19 05:02 98.4 F 80 16 05/24/19 04:47 98.2 F 86 16 05/24/19 04:37 98.2 F 88 16 05/24/19 04:27 98.2 F 91 H 16 05/24/19 03:41 90 16 116/70 05/24/19 03:31 87 14 05/24/19 03:17 91 H 16 05/24/19 03:14 92 H 18 05/24/19 02:47 98.1 F 111 H 18 117/78 BP Pulse Ox 05/24/19 09:13 104/64 68 L 05/24/19 08:30 98 05/24/19 07:35 98 05/24/19 06:30 98 05/24/19 06:00 97 05/24/19 05:30 91/61 L 100 05/24/19 05:15 107/65 100 05/24/19 05:02 94/65 L 100 05/24/19 04:47 99/66 L 100 05/24/19 04:37 104/68 100 05/24/19 04:27 100/65 100 05/24/19 03:41 99 05/24/19 03:31 116/82 100 05/24/19 03:17 119/76 100 05/24/19 03:14 126/84 100 05/24/19 02:47 100 PG Care Time/CCT Total # of Minutes Spent Total Time Spent with Patient: Total time spent is greater than 50% in coordination of care (as documented) at patient's floor/unit and/or counseling patient:
[2019-05-24 09:54] LABS: Hematocrit (blood only) 28.2 % (37-47)
[2019-05-24] MEDS ORDERED: PIPERACILLIN/TAZOBACTAM 3.375 GM/115 ML BAG IV SCH (10:00)
[2019-05-24] MEDS: METHYLERGONOVINE MALEATE 0.2 MG/ML AMP IM SCH ×2 (10:50→16:10)
[2019-05-24 10:58] LABS: Appearance Urine Clear (Clear); Bacteria Urine Automated Negative (Negative); Bilirubin Urine Negative (Negative); Blood Urine 3+ (Negative); Color Urine Yellow; Epithelial Cell Urine Auto 20-30 /lpf (0-5); Glucose Urine UA Negative (Negative); Ketones Urine Negative (Negative); Leukocyte Esterase Urine 1+ (Negative); Nitrite Urine Negative (Negative); Protein Urine Negative (Negative); RBC Urine Automated >30 /hpf (0-4); Specific Gravity Urine 1.024 (1.000-1.030); Urobilinogen Urine Negative (Negative); pH Urine 5.5 (4.5-7.5)
--- NOTE | 2019-05-24 11:21 | Operative Report ---
DATE OF OPERATION: 05/24/2019 PREOPERATIVE DIAGNOSIS: Massive, severe delayed hemorrhage. POSTOPERATIVE DIAGNOSES: 1. Severe delayed hemorrhage. 2. Retained products of conception. PROCEDURES: Exam under anesthesia with dilation and evacuation. SURGEON: Magnolia Sousa MD ANESTHESIA: General per endotracheal tube. ESTIMATED BLOOD LOSS: 150 mL in the operating room, there was at least 500-600 mL of clot and blood on the chucks when we moved her over from the table. INTRAVENOUS FLUIDS: 1 liter plus. URINE OUTPUT: 25 mL. INDICATIONS: The patient is a 3, para 3, about 2 weeks out from her last uncomplicated delivery and she woke up in the night with sudden hemorrhage and massive bleeding, passing large clots, filling pads in less than 15 minutes. FINDINGS: Exam under anesthesia revealed a bulky uterus approximately 14-week size, sounded to [address] my finger through the cervix and products of conception were palpated. This was confirmed via ultrasound. COMPLICATIONS: None. DRAINS: None. DISPOSITION: To recovery room in stable condition. DESCRIPTION OF PROCEDURE: The patient was taken to the operating room where she was identified verbally and by bracelet. She was placed on the operating table where general anesthesia was induced without difficulty. She was then placed in the dorsal lithotomy position [facility] and prepped and draped in normal sterile fashion. A time-out was held, identifying correct patient, procedure, positioning. She did receive Zosyn for preoperative antibiotic and there were no concerns. The bladder was drained of urine. A weighted speculum was placed in the posterior vagina and the anterior lip of the cervix was grasped with an [employer] Adviser's finger was placed through an exam under anesthesia revealed a bulky 14-week size uterus. Finger was placed through the cervix which was dilated to approximately 2 cm and products of conception were palpated. This was confirmed by guidance via ultrasound. The 10 mm curette was called for, it was passed into the uterus 2-3 times with return of large amounts of clot and products of conception. A curettage was then done in 365 degrees until cat's cry was heard in all quadrants. The uterus was reexamined with the motor vehicle operator road supervisor's finger and there were no further products palpable. This was confirmed via ultrasound that most if not all of the products were removed. We then spent the next 10-15 minutes monitoring for bleeding. She received IM Methergine, IV Pitocin and 800 mcg of Cytotec rectally. She also received aggressive uterine massage. At the end of the procedure, there was just very slight trickle of blood from the cervical os. There was a small laceration of the posterior lip of the cervix which was reapproximated with a 3-0 Vicryl suture in a [id number] fashion. At the end of the case, the uterus was more like 12-week size, I clamped down nicely and bleeding had slowed significantly. The procedure was thus terminated. All sponge, lap and needle counts were correct x2. The patient tolerated the procedure well and was taken to the recovery room in stable condition. I attest to the content of the Intraoperative Record and any orders documented therein. Any exception s are noted below.
[2019-05-24 15:54] LABS: Hematocrit (blood only) 23.9 % (37-47); Hemoglobin 8.5 g/dL (12.0-16.0)
--- NOTE | 2019-05-24 16:16 | Gynecologic Progress Note ---
Date of Service May 24, 2019 Assessment & Plan (1) Retained products of conception: (2) Postoperative state: (3) Status post dilation and curettage: (4) Delayed and secondary hemorrhage, : bleeding has tapered extremely. she has hgb that dropped but c/w her ebl per surgical provider. she denies any sx related to this anemia without ongoing bleeding. ok for d/c home and she agrees. will give dose of methergine which was due anyway prior to d/c. s/sx of complications reviewed. resume routine pp instructions. will call her in one wk about her progress, she already has her 6wk pp check up scheduled. cont to breastfeed. enc her to take fe bid + pnv qd. Subjective pt notes she is doing well. no pain. bleeding minimal. eating, voiding and walking around. no n/v/dizziness. no fainting spells since this am. hgb 8.5. . Review of Systems Review of Systems: per hpi, +flatus Physical Exam Constitutional: WD/WN, vitals as above Neurologic: grossly normal Psychiatric: A+Ox3, euthymic affect Results & Data Vital Signs (Past 12 Hours) Vital Signs Temp Pulse Pulse Resp BP BP Pulse Ox 05/24/19 15:06 99.0 F 82 16 99/64 L 99 05/24/19 11:50 99.0 F 87 18 100/65 98 05/24/19 10:16 97.7 F 86 86 18 97/60 L 98 05/24/19 09:13 68 16 104/64 68 L 05/24/19 08:30 98.2 F 86 18 88/60 L 98 05/24/19 07:35 99.0 F 86 18 91/59 L 98 05/24/19 06:30 98.1 F 89 16 88/61 L 98 05/24/19 06:00 98.6 F 92 H 16 96/66 L 97 05/24/19 05:30 98.2 F 83 16 91/61 L 91/61 L 100 05/24/19 05:15 98.4 F 87 16 107/65 100 05/24/19 05:02 98.4 F 80 16 94/65 L 100 05/24/19 04:47 98.2 F 86 16 99/66 L 100 08/09/19 04:37 98.2 F 88 16 104/68 100 05/24/19 04:27 98.2 F 91 H 16 100/65 100 PG Care Time/CCT Total # of Minutes Spent Total Time Spent with Patient: Total time spent is greater than 50% in coordination of care (as documented) at patient's floor/unit and/or counseling patient:
--- NOTE | 2019-05-27 10:56 | Discharge Summary ---
ADMITTING DIAGNOSIS: Delayed acute secondary hemorrhage. DISCHARGE DIAGNOSIS: Delayed acute secondary hemorrhage. PROCEDURE: D and E. HISTORY: The patient is a 3, para 3, 2 weeks from her third uncomplicated vaginal delivery. There were no issues with the or delivery. She woke in the middle of the night noting a gush. She was passing large clots and filling a pad in less than 15 minutes. She presented to the Emergency Department for evaluation. For her history, please see her history. PHYSICAL EXAMINATION: The perineum was covered in active bright red blood. I attempted a speculum exam, but was unable to see anything, has large clots, and active bleeding was filling the vagina. I was unable to even see the cervix. Bimanual exam showed a tender uterus, but difficult to evaluate given patient discomfort. ASSESSMENT: This was a patient with acute active bleeding with secondary delayed hemorrhage. Her i-STAT labs showed her hemoglobin to be 13. She is actively hemorrhaging. She needs to go to the OR acutely. We would start with an exam under anesthesia under ultrasound guidance and hopefully D and E of retained products. We discussed the possibility of Bakri balloon. We also discussed that if we could not get the bleeding to stop with conservative measurements, we may need to proceed with open procedure and hysterectomy. The risks were discussed. She signed consent. She understands the urgency of the situation and we proceeded to the operating room. HOSPITAL COURSE: The patient underwent an exam under anesthesia with dilation and evacuation. It was found that she had retained products of conception. Exam under anesthesia revealed a bulky uterus approximately 14-week size sounding to 10 cm. I could palpate with my fingers through the cervix and products of conception were palpated. This was confirmed via ultrasound. Dilation, evacuation, and curettage were performed under direct ultrasound guidance until her bleeding had significantly decreased. She got IM Methergine, IV Pitocin, and 800 mcg of Cytotec rectally. After the procedure, I watched for 10-15 minutes to make sure that bleeding decreased. It was significantly slow and so the procedure was terminated. I did not think a Bakri balloon was indicated at that time. The patient's postoperative course was complicated by a vasovagal episode after getting up to go to the bathroom where she passed out. She had several stat CBCs done and at 5:59 after the surgery, her hemoglobin was 10.3; at 9:09 it was 10.0 and that is when she had the vasovagal episode. We continue to watch the patient. She did much better after that. She voided. She ambulated. She tolerated a diet. Six hours later, her H and H was 8.5 and 23.9, which was consistent with the probable liter of blood that she lost between home, the ED, and the operating room. The patient was able to achieve discharge criteria later in the afternoon and was discharged home for close followup. We will touch base with the patient in a week to see how she is doing. She was instructed to call if she has any issues or concerns or further bleeding.
== END 2019-05-24 19:06 | disposition home or self-care (01) ==
LOC: ED 02:43 → ASU 03:35 → 3W 03:35 → ASU 03:41
DX: O72.2 Delayed and secondary postpartum hemorrhage